=== PATIENT | female | born 1995 | race Caucasian/White ===

== ENCOUNTER 2018-05-19 16:11 | Emergency (ER) | payer BC ==
[2018-05-19] MEDS ORDERED: NA CHLORIDE 0.9% 1,000 ML ONE (17:05)
[2018-05-19 17:25] LABS: Urine Blood 3+ (NEG); Urine Glucose NEGATIVE (NEG); Urine Protein NEGATIVE (NEG); Urine pH 7.5 (5.0-7.0)
[2018-05-19 17:33] LABS: Absolute Lymphocytes (CBC) 2.8 K/uL (0.7-4.9); Absolute Monocytes 0.6 K/uL (0.1-1.3); Absolute Neutrophil 3.2 K/uL (1.8-8.0); Basophils % 0.5 % (0-1.3); Eosinophils % 1.9 % (0-4.4); Hematocrit 37.7 % (36.0-45.0); Lymphocytes % 42.1 % (15.3-44.8); MCH 31.7 pg (27.0-35.0); MCV 91.2 fL (80-100); MPV 8.4 fL (7.6-11.3); Monocytes % 8.2 % (3.3-12.3); RBC Red Blood Cell Count 4.14 M/uL (3.86-4.86)
[2018-05-19 17:46] LABS: Potassium 3.8 mmol/L (3.5-5.1)
--- NOTE | 2018-05-19 18:09 | ER ---
Nurse's Notes [facility] Name: Satnam Gardner Age: 22 yrs Sex: Female : 1995 Arrival Date: 05/19/2018 Time: 16:16 Bed 13 Private MD: Diagnosis: Abnormal uterine and vaginal bleeding, unspecified Presentation: 05/19 16:25 Presenting complaint: Patient states: I had my IUD taken out Friday, Friday i got my ch period, today I wore pad to work, bleeded thru the pad, used a tampon, five min later I didn't feel well, I went to the restroom and a whole gush of blood came out, it was all black. I have an appot with my laboratory tester tomorrow. I am having cramping and back pain. Transition of care: patient was not received from another setting of care. Onset of symptoms was May 19, 2018 at 14:00. Risk Assessment: Do you want to hurt yourself or someone else? Patient reports no desire to harm self or others. Initial Sepsis Screen: Does the patient meet any 2 criteria? No. Patient's initial sepsis screen is negative. Does the patient have a suspected source of infection? No. Patient's initial sepsis screen is negative. Care prior to arrival: None. 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 - Social history:: Smoking status: Patient/guardian denies using tobacco. - Ebola Screening: : Patient negative for fever greater than or equal to 101.5 degrees Fahrenheit, and additional compatible Ebola Virus Disease symptoms Patient denies exposure to infectious person Patient denies travel to an Ebola-affected area in the 21 days before illness onset No symptoms or risks identified at this time. - Family history:: not pertinent. Screenin:20 Abuse screen: Denies threats or abuse. Denies injuries from another. Nutritional ph screening: No deficits noted. Tuberculosis screening: No symptoms or risk factors identified. Fall Risk None identified. Assessment: 17:21 General: Appears in no apparent distress. comfortable, slender, well groomed, Behavior ph is calm, cooperative, appropriate for age. Pain: Complains of pain in suprapubic area Pain radiates to low back area. Neuro: Level of Consciousness is awake, alert, obeys commands, Oriented to person, place, time, situation, Reports dizziness, weakness. Cardiovascular: Capillary refill < 3 seconds in bilateral fingers Patient's skin is warm and dry. Respiratory: Airway is patent Respiratory effort is even, unlabored, Respiratory pattern is regular, symmetrical. GI: No signs and/or symptoms were reported involving the gastrointestinal system. : Reports pain in suprapubic area vaginal bleeding that is heavy flow. Derm: Skin is intact, is healthy with good turgor, Skin is pink, warm \T\ dry. Musculoskeletal: Circulation, motion, and sensation intact. Range of motion: intact in all extremities. 18:36 Reassessment: Patient appears in no apparent distress at this time. Patient and/or ph family updated on plan of care and expected duration. Pain level reassessed. Patient is alert, oriented x 3, equal unlabored respirations, skin warm/dry/pink. Pt d/c home w/ family. Vital Signs: 16:27 BP 124 / 74; Weight 67.13 kg; Height 5 ft. 8 in. (172.72 cm); Pain 4/10; ch 17:19 BP 116 / 66; Pulse 68; Resp 18; Pulse Ox 100% on R/A; ph 18:36 BP 115 / 70; Pulse 64; Resp 18; Temp 97.5; Pulse Ox 99% on R/A; ph 16:27 Body Mass Index 22.50 (67.13 kg, 172.72 cm) ED Course: 16:16 Patient arrived in ED. mr 16:26 Triage completed. ch 16:27 Arm band placed on left wrist. Patient placed in an exam room, on a stretcher. 16:28 Shyann Tompkins, MOUNIKA is Primary Nurse. ph 16:29 Hank Ruth MD is Attending Physician. [facility] 16:42 Urine collected: clean catch specimen, clear. ch 17:15 Initial lab(s) drawn, by me, sent to lab. Inserted saline lock: 20 gauge in right ph antecubital area, using aseptic technique. Blood collected. 17:20 Patient has correct armband on for positive identification. Bed in low position. Call ph light in reach. Side rails up X 1. Pulse ox on. NIBP on. Warm blanket given. 18:13 Assist provider with pelvic exam: Set up pelvic tray. Performed by Hank Ruth MD ph Patient tolerated well. 18:37 IV discontinued, intact, bleeding controlled, No redness/swelling at site. Pressure ph dressing applied. Administered Medications: 17:18 Drug: NS 0.9% 1000 ml Route: IV; Rate: 1 bolus; Site: right antecubital; ph 18:12 Follow up: Response: No adverse reaction; IV Status: Completed infusion ph 18:11 Drug: TORadol 30 mg Route: IVP; Site: right antecubital; ph 18:12 Follow up: Response: No adverse reaction ph Outcome: 18:08 Discharge ordered by . [facility] 18:37 Discharged to home ambulatory, with family. ph 18:37 Condition: good 18:37 Discharge instructions given to patient, Instructed on discharge instructions, follow up and referral plans. medication usage, Demonstrated understanding of instructions, follow-up care, medications, Prescriptions given X 2. 18:38 Patient left the ED. ph Signatures: Bettye Orlando, MOUNIKA RN Hank Perry MD MD cha Rivera, Shyann Swenson RN RN ph Corrections: (The following items were deleted from the chart) 16:28 16:25 Presenting complaint: Patient states: I had my IUD taken out Friday, Friday i got ch my period, today I wore pad to work, bleeded thru the pad, used a tampon, five min later I didn't feel well, I went to the restroom and a whole gush of blood came out, it was all black. I have an appot with my laboratory tester tomorrow.
--- NOTE | 2018-05-19 18:09 | EDPHYS ---
Physician Documentation [facility] Name: Satnam Gardner Age: 22 yrs Sex: Female : 1995 Arrival Date: 05/19/2018 Time: 16:16 Bed 13 Private MD: ED Physician Hank Ruth HPI: 05/19 16:53 This 22 yrs old Female presents to ER via Ambulatory with complaints of arleth Vaginal Bleeding s/p iud removal. 16:53 The patient presents with vaginal bleeding that is. Onset: The symptoms/episode arleth began/occurred 1 day(s) ago. Modifying factors: The symptoms are alleviated by nothing, the symptoms are aggravated by nothing. Associated signs and symptoms: The patient has no apparent associated signs or symptoms. Severity of symptoms: At their worst the symptoms were mild, in the emergency department the symptoms are unchanged. The patient is sexually active. The patient has not experienced similar symptoms in the past. 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 - Social history:: Smoking status: Patient/guardian denies using tobacco. - Ebola Screening: : Patient negative for fever greater than or equal to 101.5 degrees Fahrenheit, and additional compatible Ebola Virus Disease symptoms Patient denies exposure to infectious person Patient denies travel to an Ebola-affected area in the 21 days before illness onset No symptoms or risks identified at this time. - Family history:: not pertinent. ROS: 16:53 Constitutional: Negative for fever, chills, and weight loss, Eyes: Negative for injury, arleth pain, redness, and discharge, ENT: Negative for injury, pain, and discharge, Neck: Negative for injury, pain, and swelling, Cardiovascular: Negative for chest pain, palpitations, and edema, Respiratory: Negative for shortness of breath, cough, wheezing, and pleuritic chest pain, Abdomen/GI: Negative for abdominal pain, nausea, vomiting, diarrhea, and constipation, Back: Negative for injury and pain, MS/Extremity: Negative for injury and deformity, Skin: Negative for injury, rash, and discoloration, Neuro: Negative for headache, weakness, numbness, tingling, and seizure, Psych: Negative for depression, anxiety, suicide ideation, homicidal ideation, and hallucinations, Allergy/Immunology: Negative for hives, rash, and allergies, Endocrine: Negative for neck swelling, polydipsia, polyuria, polyphagia, and marked weight changes, Hematologic/Lymphatic: Negative for swollen nodes, abnormal bleeding, and unusual bruising. 16:53 : Positive for pelvic pain, vaginal bleeding. Exam: 16:53 Constitutional: This is a well developed, well nourished patient who is awake, alert, arleth and in no acute distress. Head/Face: Normocephalic, atraumatic. Eyes: Pupils equal round and reactive to light, extra-ocular motions intact. Lids and lashes normal. Conjunctiva and sclera are non-icteric and not injected. Cornea within normal limits. Periorbital areas with no swelling, redness, or edema. ENT: Nares patent. No nasal discharge, no septal abnormalities noted. Tympanic membranes are normal and external auditory canals are clear. Oropharynx with no redness, swelling, or masses, exudates, or evidence of obstruction, uvula midline. Mucous membranes moist. Neck: Trachea midline, no thyromegaly or masses palpated, and no cervical lymphadenopathy. Supple, full range of motion without nuchal rigidity, or vertebral point tenderness. No Meningismus. Chest/axilla: Normal chest wall appearance and motion. Nontender with no deformity. No lesions are appreciated. Cardiovascular: Regular rate and rhythm with a normal S1 and S2. No gallops, murmurs, or rubs. Normal PMI, no JVD. No pulse deficits. Respiratory: Lungs have equal breath sounds bilaterally, clear to auscultation and percussion. No rales, rhonchi or wheezes noted. No increased work of breathing, no retractions or nasal flaring. Abdomen/GI: Soft, non-tender, with normal bowel sounds. No distension or tympany. No guarding or rebound. No evidence of tenderness throughout. Back: No spinal tenderness. No costovertebral tenderness. Full range of motion. Skin: Warm, dry with normal turgor. Normal color with no rashes, no lesions, and no evidence of cellulitis. MS/ Extremity: Pulses equal, no cyanosis. Neurovascular intact. Full, normal range of motion. Neuro: Awake and alert, GCS 15, oriented to person, place, time, and situation. Cranial nerves II-XII grossly intact. Motor strength 5/5 in all extremities. Sensory grossly intact. Cerebellar exam normal. Normal gait. Psych: Awake, alert, with orientation to person, place and time. Behavior, mood, and affect are within normal limits. 17:59 : Pelvic Exam: External exam: is normal, Speculum exam: mild bleeding, no cervicitis, arleth os that is closed, bimanual exam reveals no cervical motion tenderness, os that is closed, normal sized uterus, no uterine tenderness, no adnexa tenderness or masses bilaterally, no adnexal tenderness on right, no adnexal tenderness on left, discharge, is not appreciated, the nurse was present for the exam, Bladder: is normal, Rectal exam: is normal. Vital Signs: 16:27 BP 124 / 74; Weight 67.13 kg; Height 5 ft. 8 in. (172.72 cm); Pain 4/10; ch 17:19 BP 116 / 66; Pulse 68; Resp 18; Pulse Ox 100% on R/A; ph 18:36 BP 115 / 70; Pulse 64; Resp 18; Temp 97.5; Pulse Ox 99% on R/A; ph 16:27 Body Mass Index 22.50 (67.13 kg, 172.72 cm) ch MDM: 16:30 Patient medically screened. [facility] 17:05 Data reviewed: vital signs, nurses notes, lab test result(s). [facility] 05/19 16:33 Order name: Abo/rh Typing; Complete Time: 17:59 [facility] 05/19 16:33 Order name: Basic Metabolic Panel; Complete Time: 17:59 [facility] 05/19 16:33 Order name: CBC with Diff; Complete Time: 17:59 [facility] 05/19 17:14 Order name: Urine Dipstick--Ancillary (enter results); Complete Time: 17:44 05/19 17:14 Order name: Urine --Ancillary (enter results); Complete Time: 17:44 05/19 18:28 Order name: ABO/RH no charge EDPR 05/19 16:33 Order name: Urine Test (obtain specimen); Complete Time: 16:41 [facility] 05/19 16:33 Order name: IV Saline Lock; Complete Time: 17:19 [facility] 05/19 16:33 Order name: Labs collected and sent; Complete Time: 17:19 [facility] 05/19 16:33 Order name: NPO; Complete Time: 17:19 [facility] 05/19 16:33 Order name: Urine Dipstick-Ancillary (obtain specimen); Complete Time: 16:41 [facility] 05/19 17:05 Order name: Setup-Pelvic Exam; Complete Time: 17:32 [facility] Administered Medications: 17:18 Drug: NS 0.9% 1000 ml Route: IV; Rate: 1 bolus; Site: right antecubital; ph 18:12 Follow up: Response: No adverse reaction; IV Status: Completed infusion ph 18:11 Drug: TORadol 30 mg Route: IVP; Site: right antecubital; ph 18:12 Follow up: Response: No adverse reaction ph Disposition: 05/19/18 18:08 Discharged to Home. Impression: Abnormal uterine and vaginal bleeding, unspecified. - Condition is Stable. - Discharge Instructions: Dysmenorrhea, Dysfunctional Uterine Bleeding, Dysmenorrhea, [id number]. - Prescriptions for Ibuprofen 600 mg Oral Tablet - take 1 tablet by ORAL route every 8 hours As needed take with food; 21 tablet. Tylenol- Codeine #3 300-30 mg Oral Tablet - take 2 tablets by ORAL route every 6 hours As needed; 24 tablet. - Medication Reconciliation Form, Thank You Letter, Antibiotic Education, Prescription Opioid Use form. - Follow up: Private Physician; When: 2 - 3 days; Reason: Recheck today's complaints, Continuance of care, Re-evaluation by your physician. - Problem is new. - Symptoms have improved. Signatures: Dispatcher [employer] EDPR Bettye Orlando, Hank Ventura RN, ch, MD MD cha Hall, Patricia, RN RN ph Corrections: (The following items were deleted from the chart) 18:38 18:08 05/19/2018 18:08 Discharged to Home. Impression: Abnormal uterine and vaginal ph bleeding, unspecified. Condition is Stable. Discharge Instructions: Dysmenorrhea, Dysfunctional Uterine Bleeding, Dysmenorrhea, [id number]. Prescriptions for Ibuprofen 600 mg Oral Tablet - take 1 tablet by ORAL route every 8 hours As needed take with food; 21 tablet. and Forms are Medication Reconciliation Form, Thank You Letter, Antibiotic Education, Prescription Opioid Use. Follow up: Private Physician; When: 2 - 3 days; Reason: Recheck today's complaints, Continuance of care, Re-evaluation by your physician. Problem is new. Symptoms have improved. arleth
[2018-05-19] MEDS ORDERED: KETOROLAC 30 MG/ML INJ ONE (18:16)
[2018-05-19 19:20] VITALS: BP 115/70; TEMP 97.5; O2SAT 99
== END 2018-05-19 18:38 | disposition home or self-care (01) ==
LOC: ER 16:11
DX: N93.9 Abnormal uterine and vaginal bleeding, unspecified (principal)
CPT/HCPCS: 36415; 80048; 81003; 81025; 85025; 86900; 86901; 96361; 96374; 99284; J7030

== ENCOUNTER 2018-08-26 12:05 | Emergency (ER) | payer BC ==
[2018-08-26] MEDS ORDERED: NA CHLORIDE 0.9% 1,000 ML ONE (13:27)
[2018-08-26 13:29] LABS: Absolute Lymphocytes (CBC) 2.7 K/uL (0.7-4.9); Absolute Monocytes 0.5 K/uL (0.1-1.3); Absolute Neutrophil 3.1 K/uL (1.8-8.0); Basophils % 0.6 % (0-1.3); Eosinophils % 1.6 % (0-4.4); Hematocrit 43.7 % (36.0-45.0); Lymphocytes % 42.5 % (15.3-44.8); MPV 8.3 fL (7.6-11.3); Monocytes % 7.2 % (3.3-12.3); RBC Red Blood Cell Count 4.84 M/uL (3.86-4.86)
[2018-08-26 13:45] LABS: Albumin 4.6 g/dL (3.4-5.0); Bilirubin Direct 0.2 mg/dL (0-0.2); Bilirubin Total 0.7 mg/dL (0.2-1.0); Potassium 3.9 mmol/L (3.5-5.1); Protein, Total 8.5 g/dL (6.4-8.2)
[2018-08-26 13:55] LABS: Urine Blood NEGATIVE (NEG); Urine Glucose NEGATIVE (NEG); Urine Protein NEGATIVE (NEG); Urine Specific Gravity <1.005 (1.005-1.030); Urine pH 5.5 (5.0-7.0)
--- NOTE | 2018-08-26 15:53 | RAD REPORT ---
EXAM DESCRIPTION: CT - Abdomen Pelvis W Contrast - 08/26/2018 3:42 pm CLINICAL HISTORY: Right lower quadrant pain, vomiting COMPARISON: None. TECHNIQUE: Biphasic, helical CT imaging of the abdomen and pelvis was performed following 100 ml non -ionic IV contrast. Oral contrast was given. All CT scans are performed using dose optimization technique as appropriate and may include automated exposure control or mA/KV adjustment according to patient size. FINDINGS: No suspicious findings in the lung bases. The liver, spleen, and pancreas show no suspicious findings. Gallbladder and biliary tree are also wi thout suspicious finding. Symmetric renal function is seen with no hydronephrosis or suspicious renal mass. No pyelonephritis o r acute parenchymal process. No bladder abnormalities. No adrenal abnormalities. No dilated bowel loops or bowel wall thickening. The appendix is identified and normal. No free air, free fluid or inflammatory stranding. No hernia, mass or bulky lymphadenopathy. Patient does have a few small mesenteric lymph nodes in the central abdomen and right lower quadrant. No suspicious bony findings. IMPRESSION: Contrast enhanced CT abdomen and pelvis showing no acute or emergent finding. Patient has a few small mesenteric lymph nodes that are nonspecific.
--- NOTE | 2018-08-26 16:13 | EDPHYS ---
Physician Documentation [facility] Name: Satnam Gardner Age: 22 yrs Sex: Female : 1995 Arrival Date: 08/26/2018 Time: 12:09 Bed 13 Private MD: ED Physician Tashi Godoy HPI: 08/26 14:21 This 22 yrs old Female presents to ER via Ambulatory with complaints of pm1 Abdominal Pain. 14:21 The patient presents with abdominal pain Suprapubic. Onset: The symptoms/episode pm1 began/occurred 7 day(s) ago. The symptoms do not radiate. Associated signs and symptoms: Pertinent positives: nausea and vomiting, vomit x 1 today, Pertinent negatives: chest pain, constipation, diarrhea, dysuria, fever, shortness of breath. The symptoms are described as sharp. Modifying factors: The symptoms are alleviated by nothing, the symptoms are aggravated by nothing. Severity of pain: in the emergency department the pain is a 7 / 10. The patient has not experienced similar symptoms in the past. The patient has not recently seen a physician. 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 - Social history:: Smoking status: Patient/guardian denies using tobacco. - Ebola Screening: : No symptoms or risks identified at this time. ROS: 14:21 Constitutional: Negative for fever, chills, and weight loss, Eyes: Negative for injury, pm1 pain, redness, and discharge, ENT: Negative for injury, pain, and discharge, Neck: Negative for injury, pain, and swelling, Cardiovascular: Negative for chest pain, palpitations, and edema, Respiratory: Negative for shortness of breath, cough, wheezing, and pleuritic chest pain, Back: Negative for injury and pain, : Negative for injury, bleeding, discharge, and swelling, MS/Extremity: Negative for injury and deformity, Skin: Negative for injury, rash, and discoloration. 14:21 Neuro: Negative for headache, weakness, numbness, tingling, and seizure. 14:21 Abdomen/GI: Positive for abdominal pain, nausea, vomiting, of the suprapubic area, Negative for diarrhea. Exam: 14:21 Constitutional: This is a well developed, well nourished patient who is awake, alert, pm1 and in no acute distress. Head/Face: Normocephalic, atraumatic. Chest/axilla: Normal chest wall appearance and motion. Nontender with no deformity. No lesions are appreciated. Cardiovascular: Regular rate and rhythm with a normal S1 and S2. No gallops, murmurs, or rubs. Normal PMI, no JVD. No pulse deficits. Respiratory: Lungs have equal breath sounds bilaterally, clear to auscultation and percussion. No rales, rhonchi or wheezes noted. No increased work of breathing, no retractions or nasal flaring. 14:21 Back: No spinal tenderness. No costovertebral tenderness. Full range of motion. Skin: Warm, dry with normal turgor. Normal color with no rashes, no lesions, and no evidence of cellulitis. MS/ Extremity: Pulses equal, no cyanosis. Neurovascular intact. Full, normal range of motion. 14:21 Abdomen/GI: Inspection: abdomen appears normal, Bowel sounds: normal, Palpation: mild abdominal tenderness, in the suprapubic area, mass, is not appreciated, rebound tenderness, is not appreciated. 14:21 Neuro: Orientation: is normal, Motor: is normal, moves all fours, Gait: is steady, at a normal pace, without difficulty. Vital Signs: 12:15 BP 123 / 76; Pulse 57; Resp 18; Temp 98.6; Pulse Ox 98% on R/A; Weight 67.13 kg; Height ca1 5 ft. 8 in. (172.72 cm); Pain 7/10; 15:25 BP 116 / 64; Pulse 76; Resp 17; Pulse Ox 100% on R/A; aj 12:15 Body Mass Index 22.50 (67.13 kg, 172.72 cm) ca1 MDM: 12:22 Patient medically screened. pm1 12:44 Data reviewed: vital signs. Data interpreted: Pulse oximetry: on room air is 98 %. pm1 Interpretation: normal. 12:47 ED course: Patient offered pain medications in the ER. Patient refused due to it being pm1 tolerable. 16:09 Counseling: I had a detailed discussion with the patient and/or guardian regarding: the pm1 historical points, exam findings, and any diagnostic results supporting the discharge/admit diagnosis, lab results, radiology results, the need for outpatient follow up, to return to the emergency department if symptoms worsen or persist or if there are any questions or concerns that arise at home. 16:19 ED course: mother is setting up appointment for patient with her doctor, Dr. Quach - pm1 gynecology, tomorrow. . 08/26 12:46 Order name: Basic Metabolic Panel; Complete Time: 14:19 pm08/26 12:46 Order name: CBC with Diff; Complete Time: 14:19 pm08/26 12:46 Order name: Creatinine for Radiology; Complete Time: 14:19 pm08/26 12:46 Order name: Hepatic Function; Complete Time: 14:19 pm08/26 12:46 Order name: Lipase; Complete Time: 14:19 pm08/26 13:09 Order name: Test, Serum; Complete Time: 14:19 pm08/26 12:23 Order name: Urine Dipstick-Ancillary (obtain specimen); Complete Time: 13:25 pm08/26 12:23 Order name: Urine Test (obtain specimen); Complete Time: 13:24 pm08/26 12:46 Order name: IV Saline Lock; Complete Time: 13:24 pm08/26 12:46 Order name: Labs collected and sent; Complete Time: 13:24 pm08/26 12:46 Order name: CT Abd/Pelvis - W/Contrast: IV and PO contrast; Complete Time: 16:06 pm08/26 13:13 Order name: Urine Dipstick--Ancillary (enter results); Complete Time: 14:19 bd Administered Medications: 13:24 Drug: NS 0.9% 1000 ml Route: IV; Rate: 1000 ml; Site: right antecubital; aj 15:24 Follow up: Response: No adverse reaction; IV Status: Completed infusion; IV Intake: aj 1000ml 16:44 Not Given (Patient Refused): TORadol 30 mg IVP once aj Disposition: 18:30 Co-signature as Attending Physician, Tashi Godoy MD. rn Disposition: 08/26/18 16:12 Discharged to Home. Impression: Nonspecific mesenteric lymphadenitis. - Condition is Stable. - Discharge Instructions: Abdominal Pain, Adult, Mesenteric Adenitis, Pediatric. - Work release form, Medication Reconciliation Form, Thank You Letter form. - Follow up: Emergency Department; When: As needed; Reason: Worsening of condition. Follow up: Private Physician; When: 2 - 3 days; Reason: Recheck today's complaints, Continuance of care, Re-evaluation by your physician. - Problem is new. - Symptoms have improved. Signatures: Dispatcher [employer] EDGayle Blackburn RN RN Tashi Richards MD MD rn Marinas, Patrick, ELECTRIC GAS APPLIANCES DEMONSTRATOR ELECTRIC GAS APPLIANCES DEMONSTRATOR pm1 Acob, MOUNIKA Goodrich RN ca1 Corrections: (The following items were deleted from the chart) 17:13 16:12 08/26/2018 16:12 Discharged to Home. Impression: Nonspecific mesenteric aj lymphadenitis. Condition is Stable. Forms are Medication Reconciliation Form, Thank You Letter, Antibiotic Education, Prescription Opioid Use. Follow up: Emergency Department; When: As needed; Reason: Worsening of condition. Follow up: Private Physician; When: 2 - 3 days; Reason: Recheck today's complaints, Continuance of care, Re-evaluation by your physician. Problem is new. Symptoms have improved. pm1
--- NOTE | 2018-08-26 16:13 | ER ---
Nurse's Notes [facility] Name: Satnam Gardner Age: 22 yrs Sex: Female : 1995 Arrival Date: 08/26/2018 Time: 12:09 Bed 13 Private MD: Diagnosis: Nonspecific mesenteric lymphadenitis Presentation: 08/26 12:12 Presenting complaint: Patient states: "I have been having a sharp abdominal pain since ca1 last weekend, before I came here I threw up". Nausea (+). Transition of care: patient was not received from another setting of care. Onset of symptoms was August 21, 2018. Risk Assessment: Do you want to hurt yourself or someone else? Patient reports no desire to harm self or others. Initial Sepsis Screen: Does the patient meet any 2 criteria? No. Patient's initial sepsis screen is negative. Does the patient have a suspected source of infection? No. Patient's initial sepsis screen is negative. Care prior to arrival: None. 12:12 Method Of Arrival: Ambulatory ca1 12:12 Acuity: ALLI 3 ca1 TIRE SPECIALIST: 12:15 LMP 08/16/2018 ca1 Historical: - Allergies: 12:15 No Known Allergies; ca1 - Home Meds: 12:15 None [Active]; ca1 - PMHx: 12:15 None; ca1 - PSHx: 12:15 Shoulder Surgery; Knee Surgery; ca1 - Immunization history:: Flu vaccine is not up to date. - Social history:: Smoking status: Patient/guardian denies using tobacco. - Ebola Screening: : No symptoms or risks identified at this time. Screenin:25 Abuse screen: Denies threats or abuse. Denies injuries from another. Nutritional aj screening: No deficits noted. Tuberculosis screening: No symptoms or risk factors identified. Fall Risk None identified. Assessment: 13:25 General: Appears in no apparent distress. comfortable, Behavior is calm, cooperative, aj appropriate for age. Pain: Complains of pain in abdomen. Neuro: Level of Consciousness is awake, alert, obeys commands, Oriented to person, place, time, situation, Appropriate for age. Respiratory: Airway is patent Respiratory effort is even, unlabored, Respiratory pattern is regular, symmetrical. GI: Abdomen is flat, non-distended, Bowel sounds present X 4 quads. Abd is soft X 4 quads Abdomen is tender to palpation in right lower quadrant and left lower quadrant Reports nausea, vomiting. Derm: Skin is intact, is healthy with good turgor, Skin is pink, warm \\T\\ dry. normal. Vital Signs: 12:15 BP 123 / 76; Pulse 57; Resp 18; Temp 98.6; Pulse Ox 98% on R/A; Weight 67.13 kg; Height ca1 5 ft. 8 in. (172.72 cm); Pain 7/10; 15:25 BP 116 / 64; Pulse 76; Resp 17; Pulse Ox 100% on R/A; aj 12:15 Body Mass Index 22.50 (67.13 kg, 172.72 cm) ca1 ED Course: 12:09 Patient arrived in ED. mr 12:15 Triage completed. ca1 12:15 Arm band placed on left wrist. ca1 12:17 Colt Graff NP is PHCP. pm1 12:17 Tashi Godoy MD is Attending Physician. pm1 12:25 Gayle Acuna RN is Primary Nurse. aj 13:25 Patient has correct armband on for positive identification. aj 13:25 CT that patient finished oral contrast at 1300. aj 13:25 Inserted saline lock: 22 gauge in right antecubital area, using aseptic technique. aj Blood collected. 15:[address] via wheelchair. vm2 15:43 CT Abd/Pelvis - W/Contrast: IV and PO contrast In Process Unspecified. EDMS 15:45 CT completed. Patient tolerated procedure well. Patient moved back from CT. vm2 17:12 No provider procedures requiring assistance completed. IV discontinued, intact, aj bleeding controlled, No redness/swelling at site. Pressure dressing applied. Administered Medications: 13:24 Drug: NS 0.9% 1000 ml Route: IV; Rate: 1000 ml; Site: right antecubital; aj 15:24 Follow up: Response: No adverse reaction; IV Status: Completed infusion; IV Intake: aj 1000ml 16:44 Not Given (Patient Refused): TORadol 30 mg IVP once aj Intake: 15:24 IV: 1000ml; Total: 1000ml. aj Outcome: 16:12 Discharge ordered by . pm1 17:12 Discharged to home ambulatory, with family. aj 17:12 Condition: good 17:12 Discharge instructions given to patient, family, Instructed on discharge instructions, follow up and referral plans. Demonstrated understanding of instructions, follow-up care. 17:13 Patient left the ED. aj Signatures: Dispatcher [employer] Gayle Rosales RN RN Tabitha Figueroa mr Colt Graff, SURVEY WORKER SURVEY WORKER pm1 Lucia Portillo 2 Joleen Soria RN RN ca1
[2018-08-26] MEDS ORDERED: KETOROLAC 30 MG/ML INJ ONE (16:27)
[2018-08-26 17:26] VITALS: TEMP 98.6
[2018-08-26 17:27] VITALS: BP 116/64; O2SAT 100
== END 2018-08-26 17:13 | disposition home or self-care (01) ==
LOC: ER 12:05
DX: I88.0 Nonspecific mesenteric lymphadenitis (principal)
CPT/HCPCS: 36415; 74177; 80048; 80076; 81003; 83690; 84703; 85025; 96360; 96361; 99284; J7030; Q9967